=== PATIENT | male | born 1940 | race Caucasian/White ===

== ENCOUNTER → 2017-05-24 | Day surgery (SDC) | payer MEDICARE, MEDICAID ==
[~2017-05-24] MED LIST: ACETAMINOPHEN 325 MG TAB ONE; BUME1TAB PO; DEXAMETHASONE SOD PHOS 4 MG/ML VIAL ONE; EPINEPHrine HCL (1:1000) 1 MG/ML VIAL ONE; LISI5 PO; METO25 PO; MIDAZOLAM HCL 2 MG/2 ML VIAL ONE; MOXIFLOXACIN 0.5% OPHT SOLN 3 ML BTL ONE; ONDANSETRON HCL 4 MG/2 ML VIAL IV PUSH ONE; PHENYLEPHRINE HCL 10% OPTH SOLN 5 ML BTL ONE; POTA20IN2 IV; PROPOFOL 200 MG/20 ML AMP IV ONE; SODIUM CHLORIDE 0.9% INJ 10 ML ONE; TETRACAINE 0.5% OPTH SOLN 15 ML BTL ONE; TOBRAMYCIN/DEXAMETHASONE OPTH OINT 3.5 GM TUBE ONE; TRIAMCINOLONE ACETONIDE 40 MG/ML VIAL ONE; ceFAZolin INJ 1,000 MG VIAL ONE; prednisoLONE ACETATE 1% OPHT SUSP 5 ML BTL ONE
--- NOTE | 2017-05-24 13:38 | MP ---
cc: ALEX IVORY MD DATE OF SURGERY 05/24/2017 PREOPERATIVE DIAGNOSIS Dislocated intraocular posterior chamber lens, vitreous traction. POSTOPERATIVE DIAGNOSIS Dislocated intraocular posterior chamber lens, vitreous traction. PROCEDURE Pars vitrectomy, removal of dislocated posterior chamber intraocular lens and release of vitreous traction, endolaser, insertion of intravitreal Kenalog, insertion of MTA-3U0, 18.5 diopter power anterior chamber intraocular lens right eye. COMPLICATIONS None BLOOD LOSS Less than [address] Rolle, general INDICATION FOR THE PROCEDURE This is a delightful patient who presented with significant vision changes in his right eye. The patient reports that his vision comes and goes dramatically and was found to have a dislocated posterior chamber intraocular lens on his right eye. The patient elected for surgical correction. The patient also had vitreous traction which was difficult to discern with the posterior chamber intraocular lens and vitreous debris precluding adequate visualization. PROCEDURE NOTE Informed consent was obtained, the patient brought to the operating room where general anesthesia was established. The right eye was prepped and draped in a sterile fashion. Betadine was instilled in the conjunctival fornix. A three port pars plana vitrectomy was established with a self-retaining infusion cannula. Core vitreous was evacuated. Vitreous traction as the peripheral retina was relieved. Vitreous traction to the posterior chamber intraocular lens which was now freely floating in the vitreous cavity was relieved. The dislocated posterior chamber intraocular lens was brought into the anterior chamber. A scleral tunnel was fashioned and dislocated posterior chamber intraocular lens removed. The anterior chamber intraocular lens MTA-3UO 18.5 diopter power was inserted into the anterior chamber and rotated in position with the Satinsky hook. A superior peripheral iridectomy was made with Microvit. Scleral depression examination revealed no retinal holes, tears or detachments. 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 These areas were treated with endolaser. Intravitreal Kenalog was instilled. The trocars removed and sclerotomies closed. The scleral tunnel was closed with 7-0 Vicryl suture. Conjunctiva was reapproximated with 6-0 plain gut. A subconjunctival injection of Ancef and dexamethasone were given. The eye was patched with Tobramycin ointment. The patient brought to recovery room in stable condition to continue followup with [facility] for his postoperative care. MD MARTA Griggs/MALLORY /1:20 PM /1:25 PM DANNIE
== END | disposition home or self-care (01) ==
LOC: ESDC 09:47
PROVIDERS: ATTEND Ophthalmology
DX: T85.22XA Displacement of intraocular lens, initial encounter (principal); H43.821 Vitreomacular adhesion, right eye
CPT/HCPCS: 00142; 00145; 66986; 67039; J0171; J0690; J1100; J2250; J2405; J3010; J3301; V2630